=== PATIENT | male | born 1960 | race Caucasian/White ===

== ENCOUNTER → 2017-08-24 | Outpatient (CLI) | payer OTHER ==
[~2017-08-24] MED LIST: ACET500T68 PO; ANDROGELPT; CETI-169 PO; CHOL100059 PO; CHOL500025 PO; DULO30CA35 PO; DULO60CA56 PO; FLUO-177 PO; IODI150T PO; IODI1GRA2 MC; LEVO-3 PO; LEVO137C4 PO; LEVO150T78 PO; LIOT5TAB18 PO; MAGN27TA6 PO; MELA10TA2 PO; MELA1TAB23 PO; MULT1TAB64 PO; MULTI VITAMIN PO; OXYC10TA67 PO; SAW500CA PO; TEST90SO TOP; THYR15TA6 PO; TRA50 PO; VALE100C2 PO; [UNRECOGNIZED DRUG - CODE] PO; [UNRECOGNIZED DRUG - MIXTURE] TOP
[2017-08-24 16:35] LABS: PLATELET COUNT, AUTOMATED 341 K/uL (150-450)
== END ==
LOC: LAB 16:04
PROVIDERS: ATTEND Internal Medicine
DX: E29.1 Testicular hypofunction (principal); E03.9 Hypothyroidism, unspecified; F41.8 Other specified anxiety disorders
CPT/HCPCS: 36415; 82040; 82247; 82310; 82374; 82435; 82565; 82947; 84075; 84132; 84153; 84155; 84295; 84439; 84443; 84450; 84460; 84481; 84520; 85025